=== PATIENT | female | born 1955 | race African-American/Black ===

== ENCOUNTER 2016-07-09 16:14 | Inpatient (IN) | payer MEDICARE, MEDICAID ==
[~2016-07-09] VITALS: Ht 167.6 cm; Wt 71.3 kg
[~2016-07-09 16:14] MED LIST: ALBU18HF2 INH; ALPR-394 PO; CARISOPRODOL PO; DEXL60CA3 PO; GABA-531 PO; HYDR-519 PO; HYDR25TA PO; OXYC-23 PO; POTA20TA75 PO; THE3 PO; VERA-4 PO
[2016-07-09 18:01] LABS: BASOPHILS % 0.3 % (0.0-2.0); EOSINOPHILS % 0.8 % (0.0-5.0); HEMATOCRIT. 41.7 % (36.0-48.0); HEMOGLOBIN. 14.5 g/dL (12.0-16.0); LYMPHOCYTES % 15.4 % (20.0-50.0); MEAN CORPUSCULAR HEMOGLOBIN 31.8 pg (28.0-32.0); MEAN CORPUSCULAR HGB CONC 34.8 g/dL (31.0-37.0); MEAN CORPUSCULAR VOLUME 91.5 fL (81.0-99.0); MEAN PLATELET VOLUME 8.2 fl (7.4-10.4); MONOCYTES % 7.7 % (2.0-8.0); NEUTROPHILS % 75.8 % (40.0-76.0); PLATELET 254 x1000/uL (130-400); RED BLOOD CELL COUNT 4.56 mill/uL (4.2-5.4); RED CELL DISTRIBUTION WIDTH 13.2 % (11.6-14.6); WHITE BLOOD COUNT 16.2 x1000/uL (4.5-11.0)
[2016-07-09 18:06] LABS: PROTHROMBIN TIME 10.9 sec
[2016-07-09 18:15] LABS: ALANINE AMINOTRANSFERASE 68 IU/L (13-61); ALBUMIN 2.8 g/dL (3.4-5.0); ANION GAP 13; CALCIUM 8.8 mg/dL (8.5-10.1); CARBON DIOXIDE 30 mEq/L (21-32); CHLORIDE 98 mEq/L (98-107); INDEX HEMOLYSI 1 (1-3); INDEX ICTERIC 1 (1-4); INDEX LIPEMIC 1 (1-3); MAGNESIUM 1.8 mg/dL (1.8-2.4); NT PRO B-TYPE NATRIURETIC PEP 26 pg/mL (5-125); TROPONIN I < 0.02 ng/mL (0.00-0.04); UREA NITROGEN BLOOD 12 mg/dL (7-21); eGFR > 60 mL/min (>60)
[2016-07-09] MEDS ORDERED: METHYLPREDNISOLONE SOD SUCC 125 MG/2 ML VIAL IV STA (18:38)
[2016-07-09] MEDS ORDERED: IPRATROPIUM BROMIDE (0.02%) 0.5MG/2.5ML NEB HHN STA (18:38)
[2016-07-09] MEDS ORDERED: ALBUTEROL (0.083%) 2.5MG/3ML NEB HHN STA (18:38)
[2016-07-09] MEDS ORDERED: LEVOFLOXACIN 750MG PREMIX 150 ML IV ONE (18:45)
[2016-07-09] MEDS ORDERED: MAGNESIUM 2 G PREMIX 50 ML IV ONE (18:45)
[2016-07-09 19:16] LABS: CLARITY URINE CLEAR (CLEAR); COLOR URINE YELLOW (YELLOW); GLUCOSE URINE NEGATIVE (NEGATIVE); KETONES URINE NEGATIVE (NEGATIVE); LEUKOCYTE ESTERASE URINE NEGATIVE (NEGATIVE); NITRITE URINE NEGATIVE (NEGATIVE); OCCULT BLOOD URINE 2+ (NEGATIVE); PROTEIN URINE NEGATIVE (NEGATIVE); SPECIFIC GRAVITY URINE 1.017 (1.005-1.030)
[2016-07-09] MEDS ORDERED: HYDROCODONE/ACETAMINOPHEN 5/325MG TABLET PO ONE (19:30)
[2016-07-09 19:39] LABS: BACTERIA URINE TRACE; SQUAMOUS EPITHELIAL CELL URINE FEW /lpf (RARE/1+); WBC URINE NONE SEEN /hpf (0-2)
[2016-07-09] MEDS ORDERED: SODIUM CHLORIDE 0.9% 1,000 ML IV ONE (21:06)
[2016-07-09] MEDS ORDERED: POTASSIUM CHLORIDE 20MEQ TABLET SR PO ONE (21:15)
[2016-07-09] MEDS ORDERED: ACETAMINOPHEN 325MG TABLET PO PRN (21:45)
[2016-07-09] MEDS ORDERED: DIPHENHYDRAMINE 50MG/ML VIAL IV PRN (21:45)
[2016-07-09] MEDS ORDERED: DOCUSATE SODIUM 100MG CAPSULE PO PRN (21:45)
[2016-07-09] MEDS ORDERED: IPRATROPIUM/ALBUTEROL 0.5-3(2.5)MG/3ML NEB INH PRN (21:45)
[2016-07-09] MEDS ORDERED: GUAIFENESIN 200MG/10ML SUGAR FREE UDC PO PRN (21:45)
[2016-07-09] MEDS ORDERED: MAGNESIUM/ALUMINUM HYDROXIDE/SIMETHICONE 30ML UDC PO PRN (21:45)
[2016-07-09] MEDS ORDERED: LORAZEPAM 2MG/ML CPJ IV PRN (21:45)
[2016-07-09] MEDS ORDERED: NA PHOS,M-B/NA PHOS,DI-BA ENEMA 118ML PR PRN (22:00)
[2016-07-09] MEDS ORDERED: POTASSIUM CHLORIDE INJ 40 MEQ in DEXT 5% WATER 500 ML IV PRN (22:00)
[2016-07-09 23:40] VITALS: BP 110/61
[2016-07-10] VITALS: BP 110/61
[2016-07-10 00:10] LABS: ANION GAP 13; CALCIUM 8.8 mg/dL (8.5-10.1); CARBON DIOXIDE 28 mEq/L (21-32); CHLORIDE 101 mEq/L (98-107); INDEX HEMOLYSI 1 (1-3); INDEX ICTERIC 1 (1-4); INDEX LIPEMIC 1 (1-3); TROPONIN I < 0.02 ng/mL (0.00-0.04); UREA NITROGEN BLOOD 12 mg/dL (7-21); eGFR > 60 mL/min (>60)
[2016-07-10] MEDS: METHYLPREDNISOLONE SOD SUCC 125 MG/2 ML VIAL IV SCH ×4 (00:27→17:46)
[2016-07-10 04:00] VITALS: BP 134/74
[2016-07-10 07:16] LABS: HEMATOCRIT. 39.9 % (36.0-48.0); HEMOGLOBIN. 13.9 g/dL (12.0-16.0); MEAN CORPUSCULAR HEMOGLOBIN 32.7 pg (28.0-32.0); MEAN CORPUSCULAR HGB CONC 34.9 g/dL (31.0-37.0); MEAN CORPUSCULAR VOLUME 93.6 fL (81.0-99.0); MEAN PLATELET VOLUME 8.9 fl (7.4-10.4); PLATELET 235 x1000/uL (130-400); RED BLOOD CELL COUNT 4.26 mill/uL (4.2-5.4); RED CELL DISTRIBUTION WIDTH 13.2 % (11.6-14.6); WHITE BLOOD COUNT 10.4 x1000/uL (4.5-11.0)
[2016-07-10 07:26] LABS: ALANINE AMINOTRANSFERASE 86 IU/L (13-61); ALBUMIN 2.5 g/dL (3.4-5.0); ANION GAP 12; CALCIUM 9.3 mg/dL (8.5-10.1); CARBON DIOXIDE 29 mEq/L (21-32); CHLORIDE 103 mEq/L (98-107); HDL CHOLESTEROL 23 mg/dL (40-59); INDEX HEMOLYSI 1 (1-3); INDEX ICTERIC 1 (1-4); INDEX LIPEMIC 1 (1-3); LDL CHOLESTEROL 133 mg/dL (5-100); TRIGLYCERIDE 114 mg/dL (0-150); TROPONIN I < 0.02 ng/mL (0.00-0.04); UREA NITROGEN BLOOD 16 mg/dL (7-21); eGFR > 60 mL/min (>60)
[2016-07-10 07:37] LABS: DIFFERENTIAL COMMENT 1
[2016-07-10 08:00] VITALS: BP 137/89
[2016-07-10] MEDS ORDERED: POTASSIUM CHLORIDE 20MEQ TABLET SR PO SCH (08:15)
[2016-07-10] MEDS: FUROSEMIDE 40MG/4ML VIAL IV SCH (08:23)
[2016-07-10] MEDS: ASPIRIN 81MG EC TABLET PO SCH (08:23)
[2016-07-10] MEDS: ENOXAPARIN 40MG/0.4ML SYR SUBCUT SCH ×2 (08:30→08:36)
[2016-07-10] MEDS: HYDROCODONE/ACETAMINOPHEN 5/325MG TABLET PO PRN ×3 (08:39→23:38)
[2016-07-10 10:40] LABS: PLATELET ESTIMATE NORMAL
[2016-07-10 12:00] VITALS: BP 145/94
[2016-07-10 16:00] VITALS: BP 144/83
[2016-07-10] MEDS: FLUTICASONE PROPIONATE 50MCG/SPRAY BOTTLE BOTHNSTRLS SCH (16:58)
[2016-07-10] MEDS: HYDROMORPHONE HCL/PF 2MG/ML CPJ IV PRN ×2 (17:00→20:52)
[2016-07-10] MEDS: BUDESONIDE 0.5MG/2ML NEB HHN SCH ×2 (17:20→20:06)
[2016-07-10] MEDS: IPRATROPIUM/ALBUTEROL 0.5-3(2.5)MG/3ML NEB HHN SCH ×2 (17:21→20:06)
[2016-07-10] MEDS: LEVOFLOXACIN 500MG PREMIX 100 ML IV SCH (17:41)
[2016-07-10] MEDS ORDERED: LEVOFLOXACIN 500MG PREMIX 100 ML IV SCH (18:00)
[2016-07-10] MEDS ORDERED: DEXTROSE 50% WATER 50ML SYRINGE IV PRN (19:00)
[2016-07-10] MEDS ORDERED: POTASSIUM CHLORIDE 20MEQ TABLET SR PO NR (19:15)
[2016-07-10 20:31] VITALS: BP_SYST 150
[2016-07-10] MEDS: INSULIN LISPRO 100 UNITS/ML SUBCUT SCH (21:00)
[2016-07-10] MEDS: BLOOD SUGAR DIAGNOSTIC STRIP TEST SCH (21:10)
[2016-07-10] MEDS: GUAIFENESIN 600MG ER TABLET PO SCH (22:00)
[2016-07-10] MEDS: THEOPHYLLINE ANHYDROUS 80 MG/15 ML 120ML PO SCH (22:26)
[2016-07-11] MEDS: IPRATROPIUM/ALBUTEROL 0.5-3(2.5)MG/3ML NEB HHN SCH ×6 (00:10→19:55)
[2016-07-11 00:21] VITALS: BP 152/81
[2016-07-11] MEDS: BLOOD SUGAR DIAGNOSTIC STRIP TEST SCH ×4 (05:59→21:00)
[2016-07-11] MEDS: METHYLPREDNISOLONE SOD SUCC 125 MG/2 ML VIAL IV SCH ×3 (06:02→12:46)
[2016-07-11] MEDS: THEOPHYLLINE ANHYDROUS 80 MG/15 ML 120ML PO SCH ×3 (06:03→22:00)
[2016-07-11 06:11] LABS: BASOPHILS % 0.1 % (0.0-2.0); HEMATOCRIT. 39.6 % (36.0-48.0); HEMOGLOBIN. 13.6 g/dL (12.0-16.0); LYMPHOCYTES % 8.1 % (20.0-50.0); MEAN CORPUSCULAR HEMOGLOBIN 31.5 pg (28.0-32.0); MEAN CORPUSCULAR HGB CONC 34.3 g/dL (31.0-37.0); MEAN CORPUSCULAR VOLUME 91.9 fL (81.0-99.0); MEAN PLATELET VOLUME 8.8 fl (7.4-10.4); MONOCYTES % 4.9 % (2.0-8.0); NEUTROPHILS % 86.9 % (40.0-76.0); PLATELET 269 x1000/uL (130-400); RED BLOOD CELL COUNT 4.31 mill/uL (4.2-5.4); RED CELL DISTRIBUTION WIDTH 13.2 % (11.6-14.6)
[2016-07-11] MEDS: HYDROCODONE/ACETAMINOPHEN 5/325MG TABLET PO PRN (06:12)
[2016-07-11 06:56] LABS: ANION GAP 14; CALCIUM 9.5 mg/dL (8.5-10.1); CARBON DIOXIDE 28 mEq/L (21-32); CHLORIDE 103 mEq/L (98-107); INDEX HEMOLYSI 1 (1-3); INDEX ICTERIC 1 (1-4); INDEX LIPEMIC 1 (1-3); MAGNESIUM 1.6 mg/dL (1.8-2.4); UREA NITROGEN BLOOD 28 mg/dL (7-21); eGFR > 60 mL/min (>60)
[2016-07-11] MEDS: INSULIN LISPRO 100 UNITS/ML SUBCUT SCH ×4 (07:50→21:00)
[2016-07-11 08:00] VITALS: BP 152/92
[2016-07-11] MEDS: ENOXAPARIN 40MG/0.4ML SYR SUBCUT SCH (09:00)
[2016-07-11] MEDS: FUROSEMIDE 40MG/4ML VIAL IV SCH (10:04)
[2016-07-11] MEDS: ASPIRIN 81MG EC TABLET PO SCH (10:04)
[2016-07-11] MEDS: GUAIFENESIN 600MG ER TABLET PO SCH ×2 (10:04→21:51)
[2016-07-11] MEDS: FLUTICASONE PROPIONATE 50MCG/SPRAY BOTTLE BOTHNSTRLS SCH (10:05)
[2016-07-11] MEDS: HYDROMORPHONE HCL/PF 2MG/ML CPJ IV PRN ×6 (10:07→22:39)
[2016-07-11 12:00] VITALS: BP 140/89
[2016-07-11 16:00] VITALS: BP 157/88
[2016-07-11] MEDS: LEVOFLOXACIN 500MG PREMIX 100 ML IV SCH (17:50)
[2016-07-11] MEDS: BUDESONIDE 0.5MG/2ML NEB HHN SCH (19:56)
[2016-07-11 20:00] VITALS: BP 146/78
[2016-07-11] MEDS: METHYLPREDNISOLONE SOD SUCC 40 MG/ML VIAL IV SCH (21:51)
[2016-07-12] VITALS: BP 142/81
[2016-07-12] MEDS: HYDROMORPHONE HCL/PF 2MG/ML CPJ IV PRN ×6 (01:44→20:48)
[2016-07-12] MEDS: IPRATROPIUM/ALBUTEROL 0.5-3(2.5)MG/3ML NEB HHN SCH ×6 (03:40→20:09)
[2016-07-12 04:00] VITALS: BP 146/94
[2016-07-12 06:16] LABS: HEMATOCRIT. 40.3 % (36.0-48.0); HEMOGLOBIN. 13.6 g/dL (12.0-16.0); MEAN CORPUSCULAR HEMOGLOBIN 31.9 pg (28.0-32.0); MEAN CORPUSCULAR HGB CONC 33.7 g/dL (31.0-37.0); MEAN CORPUSCULAR VOLUME 94.7 fL (81.0-99.0); PLATELET 272 x1000/uL (130-400); RED BLOOD CELL COUNT 4.26 mill/uL (4.2-5.4); RED CELL DISTRIBUTION WIDTH 13.3 % (11.6-14.6); WHITE BLOOD COUNT 15.5 x1000/uL (4.5-11.0)
[2016-07-12 06:22] LABS: CHLORIDE 103 mEq/L (98-107); INDEX HEMOLYSI 1 (1-3); INDEX ICTERIC 1 (1-4); INDEX LIPEMIC 1 (1-3)
[2016-07-12 06:35] LABS: DIFFERENTIAL COMMENT 1
[2016-07-12 06:37] LABS: ANION GAP 11; CALCIUM 9.5 mg/dL (8.5-10.1); CARBON DIOXIDE 31 mEq/L (21-32); UREA NITROGEN BLOOD 29 mg/dL (7-21); eGFR > 60 mL/min (>60)
[2016-07-12] MEDS: BLOOD SUGAR DIAGNOSTIC STRIP TEST SCH ×4 (07:20→21:00)
[2016-07-12] MEDS: THEOPHYLLINE ANHYDROUS 80 MG/15 ML 120ML PO SCH ×3 (07:50→22:33)
[2016-07-12] MEDS: INSULIN LISPRO 100 UNITS/ML SUBCUT SCH ×4 (07:50→21:00)
[2016-07-12] MEDS: ENOXAPARIN 40MG/0.4ML SYR SUBCUT SCH (09:00)
[2016-07-12] MEDS: BUDESONIDE 0.5MG/2ML NEB HHN SCH ×2 (09:53→20:09)
[2016-07-12] MEDS: METHYLPREDNISOLONE SOD SUCC 40 MG/ML VIAL IV SCH ×2 (10:01→21:41)
[2016-07-12] MEDS: FUROSEMIDE 40MG/4ML VIAL IV SCH (10:01)
[2016-07-12] MEDS: GUAIFENESIN 600MG ER TABLET PO SCH ×2 (10:01→21:41)
[2016-07-12] MEDS: ASPIRIN 81MG EC TABLET PO SCH (10:01)
[2016-07-12] MEDS: FLUTICASONE PROPIONATE 50MCG/SPRAY BOTTLE BOTHNSTRLS SCH (10:02)
[2016-07-12 11:33] LABS: PLATELET ESTIMATE NORMAL
[2016-07-12 12:00] VITALS: BP 143/96
[2016-07-12] MEDS: CLONIDINE 0.1MG TABLET PO PRN (14:16)
[2016-07-12 16:00] VITALS: BP 141/87
[2016-07-12] MEDS: ONDANSETRON HCL 4MG/2ML VIAL IV PRN (17:36)
[2016-07-12] MEDS: LEVOFLOXACIN 500MG PREMIX 100 ML IV SCH (17:38)
[2016-07-12 20:33] VITALS: BP 154/87
[2016-07-12] MEDS: PANTOPRAZOLE 40MG DR TABLET PO SCH (22:33)
[2016-07-13] MEDS: IPRATROPIUM/ALBUTEROL 0.5-3(2.5)MG/3ML NEB HHN SCH ×4 (00:07→12:07)
[2016-07-13 00:20] VITALS: BP 143/80
[2016-07-13] MEDS: ONDANSETRON HCL 4MG/2ML VIAL IV PRN (03:43)
[2016-07-13] MEDS: HYDROMORPHONE HCL/PF 2MG/ML CPJ IV PRN ×4 (03:44→12:23)
[2016-07-13 04:00] VITALS: BP 161/97
[2016-07-13] MEDS: CLONIDINE 0.1MG TABLET PO PRN ×2 (04:59→09:09)
[2016-07-13 05:40] LABS: ANION GAP 13; CALCIUM 8.9 mg/dL (8.5-10.1); CARBON DIOXIDE 31 mEq/L (21-32); CHLORIDE 99 mEq/L (98-107); INDEX HEMOLYSI 1 (1-3); INDEX ICTERIC 1 (1-4); INDEX LIPEMIC 1 (1-3); UREA NITROGEN BLOOD 26 mg/dL (7-21); eGFR > 60 mL/min (>60)
[2016-07-13 06:27] LABS: HEMATOCRIT. 42.3 % (36.0-48.0); HEMOGLOBIN. 14.2 g/dL (12.0-16.0); MEAN CORPUSCULAR HEMOGLOBIN 31.8 pg (28.0-32.0); MEAN CORPUSCULAR HGB CONC 33.6 g/dL (31.0-37.0); MEAN CORPUSCULAR VOLUME 94.5 fL (81.0-99.0); MEAN PLATELET VOLUME 8.9 fl (7.4-10.4); PLATELET 286 x1000/uL (130-400); RED BLOOD CELL COUNT 4.48 mill/uL (4.2-5.4); RED CELL DISTRIBUTION WIDTH 13.2 % (11.6-14.6); WHITE BLOOD COUNT 14.5 x1000/uL (4.5-11.0)
[2016-07-13] MEDS: THEOPHYLLINE ANHYDROUS 80 MG/15 ML 120ML PO SCH ×2 (06:51→12:57)
[2016-07-13] MEDS: PANTOPRAZOLE 40MG DR TABLET PO SCH (06:51)
[2016-07-13] MEDS: BLOOD SUGAR DIAGNOSTIC STRIP TEST SCH ×2 (06:51→12:20)
[2016-07-13] MEDS: INSULIN LISPRO 100 UNITS/ML SUBCUT SCH ×2 (06:52→12:23)
[2016-07-13 07:21] LABS: DIFFERENTIAL COMMENT 1
[2016-07-13 08:00] VITALS: BP 158/98
[2016-07-13] MEDS: BUDESONIDE 0.5MG/2ML NEB HHN SCH (08:34)
[2016-07-13] MEDS: ENOXAPARIN 40MG/0.4ML SYR SUBCUT SCH (09:00)
[2016-07-13] MEDS: GUAIFENESIN 600MG ER TABLET PO SCH (09:08)
[2016-07-13] MEDS: ASPIRIN 81MG EC TABLET PO SCH (09:08)
[2016-07-13] MEDS: FUROSEMIDE 40MG/4ML VIAL IV SCH (09:08)
[2016-07-13] MEDS: FLUTICASONE PROPIONATE 50MCG/SPRAY BOTTLE BOTHNSTRLS SCH (09:08)
[2016-07-13] MEDS: METHYLPREDNISOLONE SOD SUCC 40 MG/ML VIAL IV SCH (09:09)
[2016-07-13 12:00] VITALS: BP 147/93
[2016-07-13 12:23] VITALS: BP 130/70
[2016-07-13 13:02] LABS: PLATELET ESTIMATE NORMAL
== END 2016-07-13 15:30 | disposition home or self-care (01) | DRG 177 ==
LOC: ER 16:15 → 6WST 19:53
PROVIDERS: ADMIT Internal Medicine; ATTEND Internal Medicine
DX: J69.0 Pneumonitis due to inhalation of food and vomit (principal); J96.01 Acute respiratory failure with hypoxia; J44.0 Chronic obstructive pulmonary disease with (acute) lower respiratory infection; E46 Unspecified protein-calorie malnutrition; R65.10 Systemic inflammatory response syndrome (SIRS) of non-infectious origin without acute organ dysfunction; J98.11 Atelectasis; J44.1 Chronic obstructive pulmonary disease with (acute) exacerbation; D63.8 Anemia in other chronic diseases classified elsewhere; J20.9 Acute bronchitis, unspecified; J45.909 Unspecified asthma, uncomplicated; F17.200 Nicotine dependence, unspecified, uncomplicated; G89.4 Chronic pain syndrome; F41.9 Anxiety disorder, unspecified; E87.6 Hypokalemia; D72.829 Elevated white blood cell count, unspecified; E86.0 Dehydration; I50.9 Heart failure, unspecified; I11.0 Hypertensive heart disease with heart failure; Z68.25 Body mass index [BMI] 25.0-25.9, adult; Z79.899 Other long term (current) drug therapy; Z71.6 Tobacco abuse counseling
CPT/HCPCS: 36415; 71010; 80048; 80053; 80061; 81001; 82962; 83605; 83735; 83880; 84484; 85025; 85610; 85730; 87040; 87086; 93005; 94664; 96365; 96368; 96375; 97162; 97165; 99291; J1170; J1650; J1815; J1940; J1956; J2060; J2405; J2920; J2930; J3475; J7030; J7050; J7611; J7620; J7626

== ENCOUNTER 2016-10-08 18:05 | Emergency (ER) | payer MEDICARE, MEDICAID ==
[~2016-10-08] VITALS: Ht 167.6 cm; Wt 71.0 kg
[~2016-10-08 18:05] MED LIST changes: +POTA20TA12 PO; -POTA20TA75 PO
[2016-10-08] MEDS ORDERED: MORPHINE SULFATE 10 MG/ML CPJ IM ONE (19:30)
[2016-10-08] MEDS ORDERED: MORPHINE SULFATE 2 MG/ML CPJ (NOT FOR IM USE) IV ONE (19:30)
[2016-10-08 19:55] VITALS: BP 159/67
== END 2016-10-08 21:59 | disposition home or self-care (01) ==
LOC: ER 18:31
DX: S73.192A Other sprain of left hip, initial encounter (principal); S83.92XA Sprain of unspecified site of left knee, initial encounter; G89.29 Other chronic pain; M54.5 Low back pain; X58.XXXA Exposure to other specified factors, initial encounter; Y93.89 Activity, other specified; Y92.89 Other specified places as the place of occurrence of the external cause; Y99.8 Other external cause status; I10 Essential (primary) hypertension
CPT/HCPCS: 73502; 73562; 96374; 99284; J2270